=== PATIENT | female | born 1980 | race American Indian/Alaskan Native ===

== ENCOUNTER 2018-03-04 17:46 | Emergency (ER) | payer OTHER ==
[2018-03-04] MEDS ORDERED: MOTRIN PO ONE (21:24)
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
[2018-03-04 23:48] VITALS: BP 125/74
== END 2018-03-04 23:48 | disposition home or self-care (01) ==
LOC: ED 17:46
DX: S13.4XXA Sprain of ligaments of cervical spine, initial encounter (principal); R51 Headache; V89.2XXA Person injured in unspecified motor-vehicle accident, traffic, initial encounter; Y93.89 Activity, other specified; Y92.89 Other specified places as the place of occurrence of the external cause; Y99.8 Other external cause status
CPT/HCPCS: 70450; 72125

== ENCOUNTER 2021-03-17 05:54 | Emergency (ER) | payer SELFPAY ==
[2021-03-17 06:06] VITALS: BP 136/85
[2021-03-17] MEDS ORDERED: ACETAMINOPHEN 500 MG TAB PO STA (09:00)
[2021-03-17] MEDS ORDERED: IBUPROFEN 800 MG TAB PO STA (09:00)
--- NOTE | 2021-03-17 09:10 | Event Note ---
ED Screening Note Date of service: 03/17/21 Time: 09:08 ED Screening Note: Patient complains of sudden onset of frontal headache starting around 6 PM yesterday Denies history of headaches or migraines States headache was a 10/10 in severity, however now it is about a 6/10 in severity She denies trying any OTC medications Denies any past medical history Patient admits to photophobia Neurologically intact on exam This initial assessment/diagnostic orders/clinical plan/treatment(s) is/are sub ject to change based on patients health status, clinical progression and re- assessment by fellow clinical providers in the ED. Further treatment and workup at subsequent clinical providers discretion. Patient/guardian urged not to elope from the ED as their condition may be serious if not clinically assessed and managed. Initial orders include: Tylenol ibuprofen-consider CT head if no improvement
--- NOTE | 2021-03-17 10:09 | Emergency Department Report ---
ED General Adult HPI - General Chief complaint: Headache Stated complaint: HEADACHE Time Seen by Provider: 03/17/21 08:58 Source: patient Mode of arrival: Ambulatory Limitations: No Limitations - History of Present Illness Initial comments: Patient complains of sudden onset of frontal headache starting around 6 PM yesterday Denies history of headaches or migraines States headache was a 10/10 in severity, however now it is about a 6/10 in severity She denies trying any OTC medications Denies any past medical history Patient admits to photophobia, denies nausea and vomiting, vision changes, confusion, numbness/tingling/weakness in her limbs, or difficulty with speech/ambulation Neurologically intact on exam -: Sudden Severity scale (0 -10): 8 - Related Data Previous Rx's Medication Instructions Recorded Last Taken Type Cyclobenzaprine [Flexeril] 10 mg PO QHS PRN #7 tablet 03/04/18 Unknown Rx Ibuprofen [Motrin] 600 mg PO Q8H PRN #30 tablet 03/04/18 Unknown Rx Allergies Allergy/AdvReac Type Severity Reaction Status Date / Time No Known Allergies Allergy Unverified 03/04/18 19:04 ED Review of Systems ROS: Stated complaint: HEADACHE Other details as noted in HPI Constitutional: denies: chills, fever, malaise, weakness Eyes: denies: eye pain, vision change Respiratory: denies: cough, shortness of breath Cardiovascular: denies: chest pain Gastrointestinal: denies: abdominal pain, nausea, vomiting Musculoskeletal: denies: back pain Neurological: headache. denies: weakness, numbness, paresthesias, confusion, abnormal gait ED Past Medical Hx - Past Medical History Previous Medical History?: No - Surgical History Past Surgical History?: No - Social History Smoking Status: Never Smoker - Medications Home Medications: Home Medications Medication Instructions Recorded Confirmed Last Taken Type Cyclobenzaprine [Flexeril] 10 mg PO QHS PRN #7 tablet 03/04/18 Unknown Rx Ibuprofen [Motrin] 600 mg PO Q8H PRN #30 tablet 03/04/18 Unknown Rx ED Physical Exam - General Limitations: No Limitations General appearance: alert, in no apparent distress - Head Head exam: Present: atraumatic, normocephalic - Eye Eye exam: Present: normal appearance, PERRL, EOMI. Absent: scleral icterus - Neck Neck exam: Present: normal inspection - Respiratory Respiratory exam: Present: normal lung sounds bilaterally. Absent: respiratory distress - Cardiovascular Cardiovascular Exam: Present: regular rate, normal rhythm - Extremities Exam Extremities exam: Present: full ROM - Back Exam Back exam: Present: full ROM - Neurological Exam Neurological exam: Present: alert, oriented X3, CN II-XII intact, normal gait. Absent: motor sensory deficit - Expanded Neurological Exam Expanded Cerebellar function: Finger to Nose: Normal, Heel to Son: Normal, [place]: Normal Sensory exam: Upper Extremity Light Touch: Normal, Lower Extremity Light Touch: Normal Motor strength exam: RUE: 5, LUE: 5, RLE: 5, LLE: 5 Best Eye Response ([place]): (4) open spontaneously Best Motor Response ([place]): (6) obeys commands Best Verbal Response ([place]): (5) oriented [place] Total: 15 - Psychiatric Psychiatric exam: Present: normal affect, normal mood - Skin Skin exam: Present: warm, dry, intact, normal color. Absent: rash ED Course Vital Signs 03/17/21 03/17/21 06:03 09:48 Temperature 98.9 F Pulse Rate 75 Respiratory 16 20 Rate Blood Pressure 136/85 [Left] O2 Sat by Pulse 96 Oximetry ED Medical Decision Making - Medical Decision Making Neuro exam is normal. Patient given Tylenol and ibuprofen and states that her headache has completely resolved. Recommend patient follows up with a primary care doctor within 3 days. Her vitals are within normal limits, she is well- appearing, she is stable for discharge home. Strict return precautions were discussed in detail with patient who verbalized understanding. Critical care attestation.: If time is entered above; I have spent that time in minutes in the direct care of this critically ill patient, excluding procedure time. ED Disposition Clinical Impression: Acute headache Disposition: DC-01 TO HOME OR SELFCARE Is pt being admited?: No Condition: Stable Instructions: Migraine Headache Referrals: [facility] [Provider Group] - 3-5 Days Forms: Work/School Release Form(ED)
== END 2021-03-17 10:16 | disposition home or self-care (01) ==
LOC: ED 05:54
DX: R51.9 Headache, unspecified (principal); Z79.899 Other long term (current) drug therapy
CPT/HCPCS: 99282